=== PATIENT | female | born 1940 | race Caucasian/White ===

== ENCOUNTER 2017-11-15 07:05 | Inpatient (IN) ==
[~2017-11-15 07:05] MED LIST: DIAZEPAM 5 MG TABLET PO ONE
[2017-11-15] MEDS ORDERED: DIAZEPAM 5 MG TABLET ONE (08:17)
[2017-11-15] MEDS: SODIUM CHLORIDE 0.45% 1,000 ML IV SCH (08:35)
[2017-11-15 09:10] LABS: Basophils # 0.1 10*3/uL (0.0-0.2); Basophils % 0.7 % (0.0-0.8); Eosinophils % 0.5 % (0.00-10.9); Hematocrit 36.5 VOL% (35.7-47.0); Hemoglobin 12.2 GM/DL (12.0-16.0); Immature Granulocytes % 0.4 %; Immature Granulocytes Absolute 0.03 #; Lymphocytes # 1.5 10*3/uL (1.4-4.0); Lymphocytes % 19.3 % (21.3-54.2); Mean Corpuscular HGB Conc 33.4 GM/DL (32-36); Mean Corpuscular Hemoglobin 32 PG (27-34); Mean Corpuscular Volume 94.6 FL (87-102); Mean Platelet Volume 9.2 FL (9.6-12.0); Monocytes # 0.7 10*3/uL (0.11-0.8); Monocytes % 9.3 % (1.7-12.7); Neutrophils # 5.3 10*3/uL (1.4-7.4); Neutrophils % 69.8 % (38.7-73.9); Platelet Count 325 T/CUMM (130-400); Red Blood Count 3.86 MC/CUMM (3.8-5.5); Red Cell Distribution Width 13.2 % (9.3-17.3); White Blood Count 7.7 T/CUMM (4-12)
[2017-11-15 09:18] LABS: INR 0.9; PT Patient Result 9.8 SECS
[2017-11-16] MEDS: SODIUM CHLORIDE 0.45% 1,000 ML IV SCH (07:35)
[2017-11-16] MEDS: LOSARTAN 50 MG TABLET PO SCH (08:18)
[2017-11-16] MEDS: PANTOPRAZOLE 40 MG TABLET PO SCH (08:18)
[2017-11-16] MEDS: PRAVASTATIN 40 MG TABLET PO SCH (08:18)
[2017-11-16] MEDS: DULoxetine 30 MG CAPSULE PO SCH (08:18)
[2017-11-16] MEDS: amLODIPine 5 MG TABLET PO SCH (08:18)
[2017-11-16] MEDS: LEVOTHYROXINE 75 MCG TABLET PO SCH (08:18)
[2017-11-16] MEDS: ARIPiprazole 10 MG TABLET PO SCH (08:19)
[2017-11-16] MEDS ORDERED: NON-FORMULARY MEDICATION (Umeclidinium Brm/Vilanterol Tr [Anoro Ellipta] 1 PUFF) INH SCH (09:00)
[2017-11-17] MEDS: LEVOTHYROXINE 75 MCG TABLET PO SCH (10:16)
[2017-11-17] MEDS: LOSARTAN 50 MG TABLET PO SCH (10:16)
[2017-11-17] MEDS: PRAVASTATIN 40 MG TABLET PO SCH (10:16)
[2017-11-17] MEDS: ARIPiprazole 10 MG TABLET PO SCH (10:16)
[2017-11-17] MEDS: PANTOPRAZOLE 40 MG TABLET PO SCH (10:16)
[2017-11-17] MEDS: DULoxetine 30 MG CAPSULE PO SCH (10:16)
[2017-11-17] MEDS: amLODIPine 5 MG TABLET PO SCH (10:16)
[2017-11-17 10:52] LABS: Basophils # 0.1 10*3/uL (0.0-0.2); Basophils % 0.9 % (0.0-0.8); Eosinophils # 0.1 10*3/uL (0.0-0.87); Eosinophils % 1.6 % (0.00-10.9); Hematocrit 36.8 VOL% (35.7-47.0); Hemoglobin 11.7 GM/DL (12.0-16.0); Immature Granulocytes % 0.4 %; Immature Granulocytes Absolute 0.03 #; Lymphocytes % 25.2 % (21.3-54.2); Mean Corpuscular HGB Conc 31.8 GM/DL (32-36); Mean Corpuscular Hemoglobin 30 PG (27-34); Mean Corpuscular Volume 95.6 FL (87-102); Mean Platelet Volume 9.3 FL (9.6-12.0); Monocytes # 0.9 10*3/uL (0.11-0.8); Monocytes % 11.2 % (1.7-12.7); Neutrophils # 4.7 10*3/uL (1.4-7.4); Neutrophils % 60.7 % (38.7-73.9); Platelet Count 358 T/CUMM (130-400); Red Blood Count 3.85 MC/CUMM (3.8-5.5); Red Cell Distribution Width 13.4 % (9.3-17.3); White Blood Count 7.7 T/CUMM (4-12)
[2017-11-17 11:36] LABS: Bilirubin,Total 0.4 MG/DL (0.2-1.0); Calcium 9.1 MG/DL (8.5-10.1); Osmolality,Calculated 273.1 MOS/KG (273-304); Potassium 3.9 MMOL/L (3.5-5.1); Total Protein 6.8 G/DL (6.4-8.3)
[2017-11-18] MEDS: DULoxetine 30 MG CAPSULE PO SCH (08:54)
[2017-11-18] MEDS: LEVOTHYROXINE 75 MCG TABLET PO SCH (08:55)
[2017-11-18] MEDS: PRAVASTATIN 40 MG TABLET PO SCH (08:55)
[2017-11-18] MEDS: LOSARTAN 50 MG TABLET PO SCH (08:55)
[2017-11-18] MEDS: amLODIPine 5 MG TABLET PO SCH (08:55)
[2017-11-18] MEDS: PANTOPRAZOLE 40 MG TABLET PO SCH (08:55)
[2017-11-18] MEDS: ARIPiprazole 10 MG TABLET PO SCH (08:55)
[2017-11-18 12:25] VITALS: BP 123/62
== END 2017-11-18 16:34 | disposition home or self-care (01) | DRG 200 ==
LOC: N.RAD 07:05 → N.5E 07:05 → N.SDSINP 07:11 → N.5E 11:06
PROVIDERS: ADMIT Radiology Diagnostic Radiology; ATTEND Internal Medicine Pulmonary Disease
PROC: IRGDHTC (2017-11-15 10:04)